=== PATIENT | male | born 1945 | race Caucasian/White ===

== ENCOUNTER 2017-10-22 07:04 | Inpatient (IN) | payer MEDICARE, BC ==
[~2017-10-22] VITALS: Ht 182.9 cm; Wt 90.5 kg
[2017-10-22] MEDS ORDERED: BACITRACIN ZINC OINT 500U/GM, 0.9 GM ONE (07:28)
[2017-10-22] MEDS ORDERED: SODIUM CHLORIDE FLUSH 10ML SYR IVF ONE (08:00)
[2017-10-22 08:03] LABS: HEMATOCRIT 50.9 % (39.2-51.8); WHITE BLOOD COUNT 8.2 x10^3/uL (3.4-10)
[2017-10-22] MEDS ORDERED: SIMV40TA3 PO (08:05)
[2017-10-22] MEDS ORDERED: TAMS0.4C2 PO (08:05)
[2017-10-22] MEDS ORDERED: ENAL10TA PO (08:05)
[2017-10-22] MEDS ORDERED: CARV12.52 PO (08:05)
[2017-10-22] MEDS ORDERED: ASPI-515 PO (08:05)
[2017-10-22] MEDS ORDERED: MULT-717 PO (08:06)
[2017-10-22 08:13] LABS: BLOOD UREA NITROGEN 26 mg/dL (7-18)
[2017-10-22 08:17] LABS: IS PT STATUS REG ER OR PRE ER? YES
[2017-10-22] MEDS ORDERED: POLYETHYLENE GLYCOL 17 GM PACKET PO PRN (10:00)
[2017-10-22] MEDS ORDERED: ENOXAPARIN 40 MG/0.4 ML SQ SCH (10:00)
[2017-10-22] MEDS ORDERED: morphine SULFATE 10 MG/ML, 1ML IVPush PRN (10:00)
[2017-10-22] MEDS ORDERED: TRAZODONE 50MG TABLET PO PRN (10:00)
[2017-10-22] MEDS ORDERED: ONDANSETRON 2MG/ML, 2ML IVPush PRN (10:00)
[2017-10-22] MEDS ORDERED: HYDROcodone/APAP 5/325 TABLET PO PRN (10:00)
[2017-10-22] MEDS ORDERED: DOCUSATE 100 MG CAPSULE PO PRN (10:00)
[2017-10-22] MEDS ORDERED: SODIUM CHLORIDE FLUSH 10ML SYR IVF PRN (10:00)
[2017-10-22 10:59] VITALS: BP 115/71
[2017-10-22] MEDS: ACETAMINOPHEN 325 MG TABLET PO PRN ×2 (12:33→20:11)
[2017-10-22 13:15] LABS: IS PT STATUS REG ER OR PRE ER? NO
[2017-10-22 19:07] VITALS: BP 102/62
[2017-10-22 19:57] VITALS: BP 119/73
[2017-10-22] MEDS: SODIUM CHLORIDE FLUSH 10ML SYR IVF SCH (20:10)
[2017-10-22] MEDS: CARVEDILOL 12.5 MG TABLET PO SCH (20:11)
[2017-10-22] MEDS: ENALAPRIL 10 MG TABLET PO SCH (20:15)
[2017-10-22 20:17] LABS: IS PT STATUS REG ER OR PRE ER? NO
[2017-10-22] MEDS ORDERED: SIMVASTATIN 40 MG TABLET PO SCH (21:00)
[2017-10-23 00:59] VITALS: BP 118/75
[2017-10-23 07:38] VITALS: BP 116/58
[2017-10-23] MEDS: SENNA/DOCUSATE TABLET PO SCH ×2 (08:07→08:22)
[2017-10-23] MEDS: CARVEDILOL 12.5 MG TABLET PO SCH (08:22)
[2017-10-23] MEDS: SODIUM CHLORIDE FLUSH 10ML SYR IVF SCH (08:22)
[2017-10-23] MEDS ORDERED: ASPIRIN 81 MG TABLET EC PO SCH (09:00)
[2017-10-23] MEDS ORDERED: TAMSULOSIN 0.4 MG CAP.ER.24H PO SCH (09:00)
[2017-10-23] MEDS ORDERED: ZOLP-413 PO (09:47)
[2017-10-23] MEDS: ENALAPRIL 10 MG TABLET PO SCH (10:54)
[2017-10-23] MEDS ORDERED: OMNIPAQUE 350 MG/ML, 100ML BOTTLE ONE ×2 (11:00→12:37)
== END 2017-10-23 14:27 | disposition home or self-care (01) | DRG 313 ==
LOC: ED 08:48 → SUATTDRO 09:20 → EDIP 09:37 → 5SO 10:48 → DCLOUNGE 10-23 14:13
PROVIDERS: ADMIT Family Medicine; ATTEND Family Medicine
DX: R07.9 Chest pain, unspecified (principal); I20.0 Unstable angina; I71.2 Thoracic aortic aneurysm, without rupture; I25.2 Old myocardial infarction; E78.5 Hyperlipidemia, unspecified; I10 Essential (primary) hypertension; G47.00 Insomnia, unspecified; I49.3 Ventricular premature depolarization; I71.4 Abdominal aortic aneurysm, without rupture; N28.1 Cyst of kidney, acquired; I49.9 Cardiac arrhythmia, unspecified; Z87.891 Personal history of nicotine dependence
CPT/HCPCS: 36415; 71010; 71275; 74175; 80048; 82040; 83735; 84484; 85025; 85610; 85730; 93005; 99285; J1650; Q9967

== ENCOUNTER 2018-01-19 09:58 | Inpatient (IN) | payer MEDICARE, BC ==
[~2018-01-19] VITALS: Ht 182.9 cm; Wt 90.0 kg
[~2018-01-19 09:58] MED LIST: ASPI-515 PO; CARV12.52 PO; ENAL10TA PO; MULT-717 PO; SIMV40TA3 PO; TAMS0.4C2 PO; ZOLP-413 PO
[2018-01-19] MEDS ORDERED: ACETAMINOPHEN 325 MG TABLET PO ONE (10:30)
[2018-01-19] MEDS ORDERED: SODIUM CHLORIDE FLUSH 10ML SYR IVF ONE (10:30)
[2018-01-19 10:39] LABS: BASOPHILS # (AUTO) 0.02 x10^3/uL (0-0.1); BASOPHILS % (AUTO) 0 % (0-1); MD NO; NEUTROPHILS # (AUTO) 4.77 x10^3/uL (1.8-6.8); RED BLOOD COUNT 5.68 x10^6/uL (4.38-5.82)
[2018-01-19 10:46] LABS: EOSINOPHILS # (AUTO) 0.03 x10^3/uL (0-0.4); EOSINOPHILS % (AUTO) 0 % (1-7); INTERNATIONAL NORMALIZED RATIO 1.02 (0.93-1.1); LYMPHOCYTES # (AUTO) 1.33 x10^3/uL (1-3.4); LYMPHOCYTES % (AUTO) 18 % (22-44); MEAN CORPUSCULAR HEMOGLOBIN 29.2 pg (27.5-34.5); MEAN CORPUSCULAR HGB CONC 33.9 g/dL (33.2-36.2); MEAN CORPUSCULAR VOLUME 86.2 fL (81-97); MEAN PLATELET VOLUME 7.7 fL (7.4-10.4); MONOCYTES # (AUTO) 1.33 x10^3/uL (0.2-0.8); MONOCYTES % (AUTO) 18 % (2-9); NEUTROPHILS % (AUTO) 64 % (42-75); PLATELET COUNT 146 x10^3/uL (130-400); PROTHROMBIN TIME 10.6 Seconds (9.6-11.5); RED CELL DISTRIBUTION WIDTH 14.7 % (9.4-14.8)
[2018-01-19] MEDS ORDERED: ACETAMINOPHEN 325 MG TABLET ONE (10:52)
[2018-01-19] MEDS ORDERED: SODIUM CHLORIDE 0.9% 1,000 ML IV ONE (10:53)
[2018-01-19 10:55] LABS: ALANINE AMINOTRANSFERASE 27 U/L (12-78); ALBUMIN 3.7 g/dL (3.4-5.0); ANION GAP 8 mmol/L (5-15); CALCIUM 8.4 mg/dL (8.5-10.1); CHLORIDE 109 mmol/L (98-107); CREATININE 1.17 mg/dL (0.7-1.3)
[2018-01-19] MEDS ORDERED: CEFTRIAXONE PMX 1GM/50ML 50 ML ONE (10:55)
[2018-01-19 10:59] LABS: ALKALINE PHOSPHATASE 61 U/L (45-117); BILIRUBIN,TOTAL 0.3 mg/dL (0.2-1.0); TOTAL PROTEIN 7.2 g/dL (6.4-8.2); TROPONIN I < 0.015 ng/mL (0.000-0.045)
[2018-01-19] MEDS ORDERED: AZITHROMYCIN 500 MG in SODIUM CHLORIDE 0.9% 250 ML IVPB ONE (11:00)
[2018-01-19] MEDS ORDERED: CEFTRIAXONE PMX 1GM/50ML 50 ML IVPB ONE (11:00)
[2018-01-19] MEDS ORDERED: SODIUM CHLORIDE 0.9% 1,000ML IVBOLUS ONE (11:00)
[2018-01-19 12:00] LABS: MICROSCOPIC NOT IND
[2018-01-19] MEDS ORDERED: SODIUM CHLORIDE FLUSH 10ML SYR IVF PRN (12:00)
[2018-01-19 12:08] LABS: CULTURE INDICATED? NO
[2018-01-19] MEDS ORDERED: morphine SULFATE 10 MG/ML, 1ML IVPush PRN (12:30)
[2018-01-19] MEDS ORDERED: DOCUSATE 100 MG CAPSULE PO PRN (12:30)
[2018-01-19] MEDS ORDERED: POLYETHYLENE GLYCOL 17 GM PACKET PO PRN (12:30)
[2018-01-19] MEDS ORDERED: MULTIVIT.W/IRON, MINERALS ORAL SOL PO SCH (12:30)
[2018-01-19] MEDS ORDERED: GUAIFENESIN/DM 200-20MG, 10ML UDC PO PRN (12:30)
[2018-01-19] MEDS ORDERED: ONDANSETRON 2MG/ML, 2ML IVPush PRN (12:30)
[2018-01-19] MEDS ORDERED: SODIUM CHLORIDE 0.9%, 500ML IVBOLUS ONE (12:30)
[2018-01-19] MEDS ORDERED: OMNIPAQUE 350 MG/ML, 100ML BOTTLE ONE (13:34)
[2018-01-19 13:40] VITALS: BP 105/70
[2018-01-19 13:45] VITALS: BP 105/70
[2018-01-19 13:59] VITALS: BP 105/70
[2018-01-19] MEDS: ASPIRIN 81 MG TABLET EC PO SCH (14:27)
[2018-01-19] MEDS: SENNA/DOCUSATE TABLET PO SCH (14:27)
[2018-01-19] MEDS: ENOXAPARIN 40 MG/0.4 ML SQ SCH (14:27)
[2018-01-19] MEDS: TAMSULOSIN 0.4 MG CAP.ER.24H PO SCH (14:27)
[2018-01-19] MEDS: NS + 20MEQ KCL 1,000 ML IV SCH ×2 (14:28→22:35)
[2018-01-19] MEDS ORDERED: ZOLPIDEM 5MG TABLET PO SCH (21:00)
[2018-01-19] MEDS ORDERED: SIMVASTATIN 40 MG TABLET PO SCH (21:00)
[2018-01-19 21:58] VITALS: BP 113/67
[2018-01-19] MEDS: HYDROcodone/APAP 5/325 TABLET PO PRN (22:47)
[2018-01-20 03:36] VITALS: BP 90/51
[2018-01-20 05:09] LABS: ANION GAP 5 mmol/L (5-15); CALCIUM 7.6 mg/dL (8.5-10.1); CHLORIDE 111 mmol/L (98-107)
[2018-01-20 05:10] LABS: CREATININE 1.06 mg/dL (0.7-1.3)
[2018-01-20 05:51] VITALS: BP 127/56
[2018-01-20 07:43] VITALS: BP 121/80
[2018-01-20] MEDS: SENNA/DOCUSATE TABLET PO SCH (08:03)
[2018-01-20] MEDS: ASPIRIN 81 MG TABLET EC PO SCH (08:03)
[2018-01-20] MEDS: TAMSULOSIN 0.4 MG CAP.ER.24H PO SCH (08:03)
[2018-01-20] MEDS: HYDROcodone/APAP 5/325 TABLET PO PRN (08:11)
[2018-01-20] MEDS ORDERED: MULTIVITAMINS/MINERALS TABLET PO SCH (09:00)
[2018-01-20] MEDS ORDERED: AZITHROMYCIN 500 MG in SODIUM CHLORIDE 0.9% 250 ML IV SCH (11:00)
[2018-01-20] MEDS ORDERED: CEFD300C37 PO (12:19)
[2018-01-20] MEDS ORDERED: AZIT500T5 PO (12:19)
[2018-01-20] MEDS: ENOXAPARIN 40 MG/0.4 ML SQ SCH (12:30)
[2018-01-20] MEDS ORDERED: CEFTRIAXONE 1,000 MG in DEXTROSE 5% 50 ML IV SCH (13:00)
== END 2018-01-20 14:41 | disposition home or self-care (01) | DRG 193 ==
LOC: ED 11:25 → EDIP 11:50 → 4EST 13:29 → 4WST 15:51
PROVIDERS: ADMIT Family Medicine; ATTEND Family Medicine
DX: J15.9 Unspecified bacterial pneumonia (principal); J96.01 Acute respiratory failure with hypoxia; E78.5 Hyperlipidemia, unspecified; I10 Essential (primary) hypertension; I72.2 Aneurysm of renal artery; Z83.3 Family history of diabetes mellitus; Z87.01 Personal history of pneumonia (recurrent); Z87.891 Personal history of nicotine dependence
CPT/HCPCS: 36415; 71046; 71275; 74174; 80048; 80053; 81003; 83605; 83735; 84145; 84484; 85025; 85610; 85730; 87040; 93005; 96365; 96366; J0456; J0696; J1650; J3480; Q9967; J7030; J7040; J7050

== ENCOUNTER 2018-04-28 08:06 | Inpatient (IN) | payer MEDICARE, BC ==
[~2018-04-28] VITALS: Ht 180.3 cm; Wt 80.9 kg
[~2018-04-28 08:06] MED LIST changes: +ALBU90AE INH; +AZIT500T5 PO; +CEFD300C37 PO; +FLUT1DIS IH; +IPRA3AMP NPPB; +METH4TAB2 PO
[2018-04-28 08:35] LABS: BASOPHILS # (AUTO) 0.04 x10^3/uL (0-0.1); BASOPHILS % (AUTO) 1 % (0-1); EOSINOPHILS % (AUTO) 2 % (1-7); LYMPHOCYTES # (AUTO) 2.28 x10^3/uL (1-3.4); LYMPHOCYTES % (AUTO) 27 % (22-44); MD NO; MEAN CORPUSCULAR HEMOGLOBIN 29.1 pg (27.5-34.5); MEAN CORPUSCULAR HGB CONC 33.7 g/dL (33.2-36.2); MEAN CORPUSCULAR VOLUME 86.1 fL (81-97); MEAN PLATELET VOLUME 7.1 fL (7.4-10.4); MONOCYTES # (AUTO) 0.76 x10^3/uL (0.2-0.8); MONOCYTES % (AUTO) 9 % (2-9); NEUTROPHILS # (AUTO) 5.12 x10^3/uL (1.8-6.8); NEUTROPHILS % (AUTO) 61 % (42-75); PLATELET COUNT 233 x10^3/uL (130-400); RED BLOOD COUNT 5.75 x10^6/uL (4.38-5.82); RED CELL DISTRIBUTION WIDTH 15.4 % (9.4-14.8)
[2018-04-28 08:48] LABS: ALANINE AMINOTRANSFERASE 37 U/L (12-78); ALBUMIN 4.1 g/dL (3.4-5.0); ANION GAP 8 mmol/L (5-15); CALCIUM 9.3 mg/dL (8.5-10.1); CHLORIDE 110 mmol/L (98-107)
[2018-04-28 08:53] LABS: ALKALINE PHOSPHATASE 65 U/L (45-117); BILIRUBIN,TOTAL 0.5 mg/dL (0.2-1.0); TOTAL PROTEIN 7.6 g/dL (6.4-8.2); TROPONIN I < 0.015 ng/mL (0.000-0.045)
[2018-04-28] MEDS ORDERED: ONDANSETRON 2MG/ML, 2ML ONE (09:13)
[2018-04-28] MEDS ORDERED: ONDANSETRON 2MG/ML, 2ML IVPush PRN ×2 (09:30)
[2018-04-28] MEDS ORDERED: ASPIRIN 325 MG TABLET EC ONE (10:29)
[2018-04-28] MEDS ORDERED: ASPIRIN 325 MG TABLET EC PO ONE (10:30)
[2018-04-28 11:04] VITALS: BP 130/75
[2018-04-28 14:15] VITALS: BP 97/64
[2018-04-28 16:45] VITALS: BP 114/70
[2018-04-28 16:47] VITALS: BP 103/64
[2018-04-28 16:50] VITALS: BP 114/77
[2018-04-28 18:53] LABS: MICROSCOPIC NOT IND
[2018-04-28 20:00] VITALS: BP 111/68
[2018-04-28] MEDS ORDERED: SIMVASTATIN 40 MG TABLET PO SCH (21:00)
[2018-04-28 22:18] LABS: MICROSCOPIC NOT IND
[2018-04-28 22:24] LABS: CULTURE INDICATED? NO
[2018-04-29 02:00] VITALS: BP 116/69
[2018-04-29 05:16] LABS: CHOL/HDL RATIO 3.2; FOLATE LEVEL 18.9 ng/mL (3.1-17.5); LDL/HDL RATIO 1.3 (0.5-3.0)
[2018-04-29 07:59] VITALS: BP 129/85
[2018-04-29] MEDS ORDERED: TAMSULOSIN 0.4 MG CAP.ER.24H PO SCH (09:00)
[2018-04-29] MEDS ORDERED: ASPIRIN 81 MG TABLET EC PO SCH (09:00)
[2018-04-29] MEDS ORDERED: MULTIVITAMINS/MINERALS TABLET PO SCH (09:00)
[2018-04-29 12:22] VITALS: BP 108/71
[2018-04-29] MEDS ORDERED: ERGOCALCIFEROL 50,000 UNIT CAPSULE PO SCH (12:30)
[2018-04-29] MEDS ORDERED: ERGO500017 PO (13:36)
== END 2018-04-29 13:55 | disposition home or self-care (01) | DRG 70 ==
LOC: ED 10:13 → EDIP 10:22 → 4WST 10:59 → DCLOUNGE 04-29 13:32
PROVIDERS: ADMIT Internal Medicine; ATTEND Internal Medicine
DX: G45.4 Transient global amnesia (principal); G93.40 Encephalopathy, unspecified; E87.2 Acidosis; E55.9 Vitamin D deficiency, unspecified; E78.00 Pure hypercholesterolemia, unspecified; E78.5 Hyperlipidemia, unspecified; I10 Essential (primary) hypertension; I25.10 Atherosclerotic heart disease of native coronary artery without angina pectoris; J44.9 Chronic obstructive pulmonary disease, unspecified; N40.0 Benign prostatic hyperplasia without lower urinary tract symptoms; Z79.82 Long term (current) use of aspirin; I25.2 Old myocardial infarction; Z80.0 Family history of malignant neoplasm of digestive organs; Z87.891 Personal history of nicotine dependence; Z90.89 Acquired absence of other organs
CPT/HCPCS: 36415; 70450; 70551; 71045; 80053; 80061; 81003; 82306; 82607; 82746; 82962; 83880; 84484; 85025; 93005; 93880; 96374; J2405

== ENCOUNTER → 2018-10-08 | Outpatient (CLI) | payer MEDICARE, BC ==
[~2018-10-08] MED LIST changes: +ERGO500017 PO; -IPRA3AMP NPPB; +IPRA3AMP30 NPPB
== END | disposition home or self-care (01) ==
LOC: CFH 06:39
PROVIDERS: ATTEND Internal Medicine
DX: M75.121 Complete rotator cuff tear or rupture of right shoulder, not specified as traumatic (principal); M25.411 Effusion, right shoulder

== ENCOUNTER → 2018-12-09 | Outpatient (CLI) | payer MEDICARE, BC | END | disposition home or self-care (01) | LOC: CFH 08:01 | DX: I71.4 Abdominal aortic aneurysm, without rupture (principal); C80.1 Malignant (primary) neoplasm, unspecified; K57.30 Diverticulosis of large intestine without perforation or abscess without bleeding; M47.896 Other spondylosis, lumbar region; N28.1 Cyst of kidney, acquired | CPT/HCPCS: 74176 ==

== ENCOUNTER 2018-12-24 08:52 | Inpatient (IN) | payer MEDICARE, BC ==
[2018-12-22 09:29] LABS: BASOPHILS # (AUTO) 0.04 x10^3/uL (0-0.1); BASOPHILS % (AUTO) 0 % (0-1); EOSINOPHILS # (AUTO) 0.25 x10^3/uL (0-0.4); EOSINOPHILS % (AUTO) 3 % (1-7); LYMPHOCYTES # (AUTO) 1.66 x10^3/uL (1-3.4); LYMPHOCYTES % (AUTO) 17 % (22-44); MD NO; MEAN CORPUSCULAR HGB CONC 32.2 g/dL (33.2-36.2); MEAN CORPUSCULAR VOLUME 86.9 fL (81-97); MEAN PLATELET VOLUME 7.2 fL (7.4-10.4); MONOCYTES # (AUTO) 0.91 x10^3/uL (0.2-0.8); MONOCYTES % (AUTO) 9 % (2-9); NEUTROPHILS % (AUTO) 71 % (42-75); PLATELET COUNT 197 x10^3/uL (130-400); RED BLOOD COUNT 5.57 x10^6/uL (4.38-5.82); RED CELL DISTRIBUTION WIDTH 14.8 % (9.4-14.8)
[2018-12-22 09:42] LABS: ALANINE AMINOTRANSFERASE 24 U/L (12-78); ALBUMIN 3.5 g/dL (3.4-5.0); ANION GAP 4 mmol/L (5-15); CHLORIDE 109 mmol/L (98-107); CREATININE 0.91 mg/dL (0.7-1.3)
[2018-12-22 09:47] LABS: ALKALINE PHOSPHATASE 78 U/L (45-117); BILIRUBIN,TOTAL 0.5 mg/dL (0.2-1.0); TOTAL PROTEIN 6.9 g/dL (6.4-8.2)
[~2018-12-24] VITALS: Ht 182.9 cm; Wt 88.2 kg
[2018-12-24] MEDS ORDERED: LACTATED RINGERS 1,000 ML IV SCH (09:45)
[2018-12-24] MEDS ORDERED: ACETAMINOPHEN 500 MG TABLET PO ONE (10:00)
[2018-12-24] MEDS ORDERED: GABAPENTIN 300 MG CAPSULE PO ONE (10:00)
[2018-12-24] MEDS ORDERED: INDOCYANINE GREEN 25 MG VIAL ONE (11:41)
[2018-12-24] MEDS ORDERED: FENTANYL PF 250 MCG/5ML ONE (11:44)
[2018-12-24] MEDS ORDERED: MIDAZOLAM 1 MG/ML, 2ML ONE (11:44)
[2018-12-24] MEDS ORDERED: ROPIvacaine/PF 0.5%, 30 ML ONE ×2 (11:47)
[2018-12-24] MEDS ORDERED: CEFOTETAN 2 GM ONE (11:47)
[2018-12-24] MEDS ORDERED: SODIUM CHLORIDE 0.9% PF 10ML ONE (11:47)
[2018-12-24] MEDS ORDERED: PROMETHAZINE 12.5 MG SUPP PR PRN (12:00)
[2018-12-24] MEDS ORDERED: hydrALAzine 20 MG/ML, 1ML IV PRN (12:00)
[2018-12-24] MEDS ORDERED: LABETALOL 5MG/ML, 20ML IV PRN (12:00)
[2018-12-24] MEDS ORDERED: ONDANSETRON 2MG/ML, 2ML IV PRN ×2 (12:00→18:00)
[2018-12-24] MEDS ORDERED: PROMETHAZINE 25 MG/ML, 1ML IV PRN (12:00)
[2018-12-24] MEDS ORDERED: ONDANSETRON ODT 8 MG PO PRN (12:00)
[2018-12-24] MEDS ORDERED: MEPERIDINE/PF 25MG/0.5ML IVPush PRN (12:00)
[2018-12-24] MEDS ORDERED: MORPHINE SULFATE 4 MG/ML, 1ML IVPush PRN (12:00)
[2018-12-24] MEDS ORDERED: PROMETHAZINE 25 MG/ML, 1ML IM PRN ×2 (12:00)
[2018-12-24] MEDS ORDERED: HYDROmorphone 2 MG/ML, 1ML IVPush PRN (12:00)
[2018-12-24] MEDS ORDERED: PROMETHAZINE 25 MG SUPP PR PRN (12:00)
[2018-12-24] MEDS ORDERED: FENTANYL PF 100 MCG/2ML IV PRN (12:00)
[2018-12-24] MEDS ORDERED: OXYcodone 5 MG/5 ML ORAL.SOL UDC PO PRN (12:00)
[2018-12-24] MEDS ORDERED: PHENYLEPHRINE 10 MG/ML ONE (12:02)
[2018-12-24] MEDS ORDERED: VASOPRESSIN 20 UNIT/ML, 1ML ONE (12:02)
[2018-12-24] MEDS ORDERED: PROPOFOL 10 MG/ML, 20ML ONE (12:54)
[2018-12-24] MEDS ORDERED: NEOSTIGMINE 1 MG/ML, 10ML ONE (12:54)
[2018-12-24] MEDS ORDERED: GLYCOPYRROLATE 0.2MG/1ML, 5ML ONE (12:54)
[2018-12-24] MEDS ORDERED: CEFAZOLIN 1,000 MG ONE (12:54)
[2018-12-24] MEDS ORDERED: ROCURONIUM 10MG/ML,5ML ONE ×2 (12:54→13:55)
[2018-12-24] MEDS ORDERED: OXYcodone 5 MG/5 ML ORAL.SOL UDC ONE (14:54)
[2018-12-24] MEDS ORDERED: MEPERIDINE/PF 25MG/ML,1ML ONE (15:02)
[2018-12-24 17:18] VITALS: BP 174/67
[2018-12-24] MEDS ORDERED: DIPHENHYDRAMINE 25 MG CAPSULE PO PRN (17:30)
[2018-12-24] MEDS: ACETAMINOPHEN 500 MG TABLET PO SCH ×2 (17:53→23:03)
[2018-12-24] MEDS: OXYcodone IR 5MG TABLET PO PRN (17:53)
[2018-12-24] MEDS: CARVEDILOL 12.5 MG TABLET PO SCH (17:54)
[2018-12-24 17:59] VITALS: BP 149/85
[2018-12-24] MEDS ORDERED: DEXAMETHASONE 4 MG/ML, 1ML IVPush PRN (18:00)
[2018-12-24] MEDS ORDERED: DIPHENHYDRAMINE 50 MG/ML, 1ML IVPush PRN (18:00)
[2018-12-24] MEDS ORDERED: SCOPOLAMINE PATCH, 1.5MG PATCH.TD72 TD PRN (18:00)
[2018-12-24] MEDS ORDERED: LORazepam 2 MG/ML, 1ML IVPush PRN (18:00)
[2018-12-24] MEDS ORDERED: CALCIUM CARBONATE 500 MG TAB.CHEW PO PRN (18:00)
[2018-12-24] MEDS ORDERED: HYDROmorphone 1 MG/ML, 1ML IVPush PRN (18:00)
[2018-12-24 19:25] VITALS: BP 135/82
[2018-12-24] MEDS: D5%-0.45NACL+KCL 20MEQ 1,000 ML IV SCH (19:49)
[2018-12-24] MEDS: IBUPROFEN 800 MG TABLET PO SCH (19:49)
[2018-12-24] MEDS: SIMVASTATIN 40 MG TABLET PO SCH (19:50)
[2018-12-24] MEDS: LORazepam 1MG TABLET PO PRN (23:03)
[2018-12-25 00:58] VITALS: BP 115/71
[2018-12-25] MEDS: OXYcodone IR 5MG TABLET PO PRN (01:18)
[2018-12-25 03:46] LABS: BASOPHILS # (AUTO) 0.03 x10^3/uL (0-0.1); BASOPHILS % (AUTO) 0 % (0-1); EOSINOPHILS # (AUTO) 0.07 x10^3/uL (0-0.4); EOSINOPHILS % (AUTO) 1 % (1-7); LYMPHOCYTES # (AUTO) 1.65 x10^3/uL (1-3.4); LYMPHOCYTES % (AUTO) 19 % (22-44); MD NO; MEAN CORPUSCULAR HEMOGLOBIN 28.5 pg (27.5-34.5); MEAN CORPUSCULAR VOLUME 86.4 fL (81-97); MEAN PLATELET VOLUME 7.5 fL (7.4-10.4); MONOCYTES # (AUTO) 1.08 x10^3/uL (0.2-0.8); MONOCYTES % (AUTO) 12 % (2-9); NEUTROPHILS # (AUTO) 5.88 x10^3/uL (1.8-6.8); NEUTROPHILS % (AUTO) 67 % (42-75); PLATELET COUNT 189 x10^3/uL (130-400); RED BLOOD COUNT 5.15 x10^6/uL (4.38-5.82); RED CELL DISTRIBUTION WIDTH 14.9 % (9.4-14.8)
[2018-12-25 03:53] LABS: ANION GAP 5 mmol/L (5-15); CALCIUM 8.4 mg/dL (8.5-10.1); CHLORIDE 109 mmol/L (98-107); CREATININE 1.18 mg/dL (0.7-1.3)
[2018-12-25] MEDS: CARVEDILOL 12.5 MG TABLET PO SCH ×2 (05:29→17:49)
[2018-12-25] MEDS: ACETAMINOPHEN 500 MG TABLET PO SCH ×3 (05:29→17:49)
[2018-12-25] MEDS: D5%-0.45NACL+KCL 20MEQ 1,000 ML IV SCH (06:41)
[2018-12-25 08:15] VITALS: BP 118/74
[2018-12-25] MEDS ORDERED: IBUPROFEN 200 MG TABLET ONE ×4 (08:19→21:47)
[2018-12-25] MEDS: TAMSULOSIN 0.4 MG CAP.ER.24H PO SCH (08:34)
[2018-12-25] MEDS: IBUPROFEN 800 MG TABLET PO SCH ×3 (08:34→21:00)
[2018-12-25] MEDS: ENOXAPARIN 40 MG/0.4 ML SQ SCH (12:01)
[2018-12-25 13:16] VITALS: BP 122/76
[2018-12-25 19:54] VITALS: BP 133/77
[2018-12-25] MEDS: LORazepam 1MG TABLET PO PRN (22:02)
[2018-12-25] MEDS: SIMVASTATIN 40 MG TABLET PO SCH (22:02)
[2018-12-26 00:40] VITALS: BP 129/72
[2018-12-26] MEDS: LORazepam 1MG TABLET PO PRN (00:56)
[2018-12-26 03:12] LABS: BASOPHILS # (AUTO) 0.03 x10^3/uL (0-0.1); BASOPHILS % (AUTO) 0 % (0-1); EOSINOPHILS # (AUTO) 0.36 x10^3/uL (0-0.4); EOSINOPHILS % (AUTO) 4 % (1-7); LYMPHOCYTES % (AUTO) 15 % (22-44); MD NO; MEAN CORPUSCULAR HEMOGLOBIN 27.3 pg (27.5-34.5); MEAN CORPUSCULAR HGB CONC 31.8 g/dL (33.2-36.2); MEAN CORPUSCULAR VOLUME 85.9 fL (81-97); MEAN PLATELET VOLUME 7.2 fL (7.4-10.4); MONOCYTES # (AUTO) 1.01 x10^3/uL (0.2-0.8); MONOCYTES % (AUTO) 10 % (2-9); NEUTROPHILS # (AUTO) 7.07 x10^3/uL (1.8-6.8); NEUTROPHILS % (AUTO) 71 % (42-75); PLATELET COUNT 207 x10^3/uL (130-400); RED BLOOD COUNT 5.48 x10^6/uL (4.38-5.82); RED CELL DISTRIBUTION WIDTH 14.2 % (9.4-14.8)
[2018-12-26 03:22] LABS: ANION GAP 8 mmol/L (5-15); CALCIUM 8.6 mg/dL (8.5-10.1); CHLORIDE 113 mmol/L (98-107); CREATININE 1.21 mg/dL (0.7-1.3)
[2018-12-26 05:07] VITALS: BP 154/76
[2018-12-26] MEDS: CARVEDILOL 12.5 MG TABLET PO SCH ×2 (05:09→18:15)
[2018-12-26] MEDS: ACETAMINOPHEN 500 MG TABLET PO SCH ×4 (05:09→18:15)
[2018-12-26 07:10] VITALS: BP 135/89
[2018-12-26] MEDS: IBUPROFEN 800 MG TABLET PO SCH ×3 (08:28→21:00)
[2018-12-26] MEDS: TAMSULOSIN 0.4 MG CAP.ER.24H PO SCH (08:28)
[2018-12-26 15:00] VITALS: BP 129/80
[2018-12-26] MEDS: ENOXAPARIN 40 MG/0.4 ML SQ SCH (15:17)
[2018-12-26 20:01] VITALS: BP 111/69
[2018-12-26] MEDS ORDERED: IBUPROFEN 200 MG TABLET ONE (21:33)
[2018-12-26] MEDS: SIMVASTATIN 40 MG TABLET PO SCH (21:36)
[2018-12-27 01:35] VITALS: BP 140/74
[2018-12-27 03:16] LABS: ANION GAP 6 mmol/L (5-15); CALCIUM 8.3 mg/dL (8.5-10.1); CHLORIDE 113 mmol/L (98-107); CREATININE 1.01 mg/dL (0.7-1.3)
[2018-12-27 03:30] LABS: BASOPHILS # (AUTO) 0.03 x10^3/uL (0-0.1); BASOPHILS % (AUTO) 0 % (0-1); EOSINOPHILS # (AUTO) 0.53 x10^3/uL (0-0.4); EOSINOPHILS % (AUTO) 7 % (1-7); LYMPHOCYTES # (AUTO) 1.65 x10^3/uL (1-3.4); LYMPHOCYTES % (AUTO) 21 % (22-44); MD NO; MEAN CORPUSCULAR HEMOGLOBIN 28.5 pg (27.5-34.5); MEAN CORPUSCULAR HGB CONC 32.8 g/dL (33.2-36.2); MEAN PLATELET VOLUME 7.4 fL (7.4-10.4); MONOCYTES # (AUTO) 0.82 x10^3/uL (0.2-0.8); MONOCYTES % (AUTO) 11 % (2-9); NEUTROPHILS # (AUTO) 4.81 x10^3/uL (1.8-6.8); NEUTROPHILS % (AUTO) 61 % (42-75); PLATELET COUNT 195 x10^3/uL (130-400); RED BLOOD COUNT 4.85 x10^6/uL (4.38-5.82); RED CELL DISTRIBUTION WIDTH 14.7 % (9.4-14.8)
[2018-12-27 06:12] VITALS: BP 142/94
[2018-12-27] MEDS: ACETAMINOPHEN 500 MG TABLET PO SCH ×2 (06:13)
[2018-12-27] MEDS: CARVEDILOL 12.5 MG TABLET PO SCH (06:13)
[2018-12-27 07:31] VITALS: BP 117/71
[2018-12-27] MEDS: TAMSULOSIN 0.4 MG CAP.ER.24H PO SCH (08:05)
[2018-12-27] MEDS ORDERED: IBUP-1223 PO (08:56)
[2018-12-27] MEDS ORDERED: ASPI-515 PO (09:20)
[2018-12-27] MEDS ORDERED: ENAL10TA PO (09:21)
[2018-12-27] MEDS ORDERED: FOLI1TAB5 PO (09:21)
== END 2018-12-27 09:40 | disposition home or self-care (01) | DRG 330 ==
LOC: ORIP 08:52 → 4NOR 16:23 → 5SO 17:17 → DCLOUNGE 12-27 09:17
PROVIDERS: ADMIT Surgery; ATTEND Surgery
PROC: 8E0W4CZ Robotic Assisted Procedure of Trunk Region, Percutaneous Endoscopic Approach (ICD-10-PCS; 2018-12-24)
PROC: 0DTN4ZZ Resection of Sigmoid Colon, Percutaneous Endoscopic Approach (ICD-10-PCS; 2018-12-24)
PROC: 3E0T3BZ Introduction of Anesthetic Agent into Peripheral Nerves and Plexi, Percutaneous Approach (ICD-10-PCS; 2018-12-24)
PROC: 0DBP4ZZ Excision of Rectum, Percutaneous Endoscopic Approach (ICD-10-PCS; principal; 2018-12-24 12:00)
DX: K63.5 Polyp of colon (principal); K57.20 Diverticulitis of large intestine with perforation and abscess without bleeding; E78.00 Pure hypercholesterolemia, unspecified; I10 Essential (primary) hypertension; N40.1 Benign prostatic hyperplasia with lower urinary tract symptoms; R33.8 Other retention of urine; E78.5 Hyperlipidemia, unspecified; Z83.3 Family history of diabetes mellitus; Z80.8 Family history of malignant neoplasm of other organs or systems
CPT/HCPCS: 36415; 80048; 80053; 82378; 85025; 86850; 86900; 88309; 93005; G0378; J0690; J1650; J2175; J2250; J2704; J2710; J2795; J3010; J3490; J2370; J3480; J7120; Q0163

== ENCOUNTER → 2019-01-12 | Outpatient (CLI) | payer MEDICARE, BC ==
[~2019-01-12] MED LIST changes: +FOLI1TAB5 PO; +IBUP-1223 PO; +OMNIPAQUE 350 MG/ML, 100ML BOTTLE ONE
[2019-01-12 12:40] LABS: BASOPHILS # (AUTO) 0.03 x10^3/uL (0-0.1); BASOPHILS % (AUTO) 0 % (0-1); EOSINOPHILS % (AUTO) 4 % (1-7); LYMPHOCYTES # (AUTO) 1.99 x10^3/uL (1-3.4); LYMPHOCYTES % (AUTO) 18 % (22-44); MD NO; MEAN CORPUSCULAR HEMOGLOBIN 28.9 pg (27.5-34.5); MEAN CORPUSCULAR HGB CONC 33.5 g/dL (33.2-36.2); MEAN CORPUSCULAR VOLUME 86.3 fL (81-97); MEAN PLATELET VOLUME 7.7 fL (7.4-10.4); MONOCYTES # (AUTO) 0.75 x10^3/uL (0.2-0.8); MONOCYTES % (AUTO) 7 % (2-9); NEUTROPHILS # (AUTO) 7.86 x10^3/uL (1.8-6.8); NEUTROPHILS % (AUTO) 71 % (42-75); PLATELET COUNT 304 x10^3/uL (130-400); RED BLOOD COUNT 5.33 x10^6/uL (4.38-5.82); RED CELL DISTRIBUTION WIDTH 15.5 % (9.4-14.8)
[2019-01-12 13:04] LABS: ANION GAP 4 mmol/L (5-15); CALCIUM 9.1 mg/dL (8.5-10.1); CHLORIDE 110 mmol/L (98-107)
[2019-01-13 18:14] LABS: CLOSTRIDIUM DIFFICILE ANTIGEN POSITIVE
[2019-01-13 18:18] LABS: CLOSTRIDIUM DIFFICILE TOXIN POSITIVE (Negative)
== END | disposition home or self-care (01) ==
LOC: CFH 10:32
PROVIDERS: ATTEND Surgery
DX: I71.4 Abdominal aortic aneurysm, without rupture (principal); K63.89 Other specified diseases of intestine; R60.0 Localized edema
CPT/HCPCS: 36415; 74177; 80048; 82565; 85025; Q9967; 87324

== ENCOUNTER 2019-02-18 11:20 | Inpatient (IN) | payer MEDICARE, BC ==
[~2019-02-18] VITALS: Ht 180.3 cm; Wt 73.0 kg
[~2019-02-18 11:20] MED LIST changes: -OMNIPAQUE 350 MG/ML, 100ML BOTTLE ONE
[2019-02-18] MEDS ORDERED: SODIUM CHLORIDE FLUSH 10ML SYR IVF ONE (12:00)
[2019-02-18 12:18] LABS: MEAN CORPUSCULAR HEMOGLOBIN 28.4 pg (27.5-34.5); MEAN CORPUSCULAR HGB CONC 32.9 g/dL (33.2-36.2); MEAN CORPUSCULAR VOLUME 86.5 fL (81-97); MEAN PLATELET VOLUME 7.2 fL (7.4-10.4); PLATELET COUNT 214 x10^3/uL (130-400); RED BLOOD COUNT 5.22 x10^6/uL (4.38-5.82); RED CELL DISTRIBUTION WIDTH 15.5 % (9.4-14.8)
[2019-02-18 12:36] LABS: ALANINE AMINOTRANSFERASE 38 U/L (12-78); ALBUMIN 3.7 g/dL (3.4-5.0); ANION GAP 9 mmol/L (5-15); CALCIUM 8.8 mg/dL (8.5-10.1); CHLORIDE 106 mmol/L (98-107)
[2019-02-18 12:39] LABS: ALKALINE PHOSPHATASE 65 U/L (45-117); BILIRUBIN,TOTAL 0.8 mg/dL (0.2-1.0); CREATININE 0.97 mg/dL (0.7-1.3)
[2019-02-18] MEDS ORDERED: FINA5TAB4 PO (12:39)
--- NOTE | 2019-02-18 13:05 | NUR ---
PT PRESENTED TO ED WITH DIARRHEA. PT STATES HE HAS HAD DIARRHEA X 5 DAYS. ASSESSMENT COMPLETED. PT PLACED IN ISOLATION. PT PLACED ON BP AND CONT. PULSE OXIMETER.
[2019-02-18 13:12] LABS: BASOPHILS # (AUTO) 0.02 x10^3/uL (0-0.1); BASOPHILS % (AUTO) 0 % (0-1); EOSINOPHILS # (AUTO) 0.32 x10^3/uL (0-0.4); EOSINOPHILS % (AUTO) 2 % (1-7); LYMPHOCYTES # (AUTO) 1.83 x10^3/uL (1-3.4); LYMPHOCYTES % (AUTO) 12 % (22-44); MD SCAN; MONOCYTES # (AUTO) 1.26 x10^3/uL (0.2-0.8); MONOCYTES % (AUTO) 8 % (2-9); NEUTROPHILS # (AUTO) 12.05 x10^3/uL (1.8-6.8); NEUTROPHILS % (AUTO) 78 % (42-75)
[2019-02-18 13:31] LABS: CLOSTRIDIUM DIFFICILE ANTIGEN NEGATIVE; CLOSTRIDIUM DIFFICILE TOXIN NEGATIVE (Negative)
[2019-02-18 14:29] LABS: MICROSCOPIC NOT IND
[2019-02-18 14:35] LABS: CULTURE INDICATED? NO
--- NOTE | 2019-02-18 15:30 | NUR ---
pt resting in bed. ID paged at this time.
--- NOTE | 2019-02-18 15:31 | NUR ---
pt taken to us
--- NOTE | 2019-02-18 15:41 | NUR ---
PT BACK FROM CT SCAN.
[2019-02-18] MEDS ORDERED: OMNIPAQUE 350 MG/ML, 100ML BOTTLE ONE (15:48)
--- NOTE | 2019-02-18 16:19 | NUR ---
dr. hi phoned- per verbal orders 2nd cdiff stool ordered and stool culture.
[2019-02-18] MEDS ORDERED: ONDANSETRON ODT 4 MG PO PRN (17:00)
[2019-02-18] MEDS ORDERED: CIPROFLOXACIN/PMX 400MG/200ML 200 ML IV SCH (17:00)
[2019-02-18] MEDS ORDERED: ONDANSETRON 2MG/ML, 2ML IVPush PRN (17:00)
[2019-02-18] MEDS ORDERED: LABETALOL 5MG/ML, 20ML IVPush PRN (17:00)
[2019-02-18 17:29] LABS: FREE T4 (FREE THYROXINE) 1.34 ng/dL (0.76-1.46)
--- NOTE | 2019-02-18 17:35 | NUR ---
ATTEMPTED TO CALL REPORT, NURSE UNAVAILABLE.
--- NOTE | 2019-02-18 17:36 | NUR ---
PENDING 2ND STOOL RESULTS FOR C-DIFF.
--- NOTE | 2019-02-18 17:50 | NUR ---
REPORT GIVEN TO CASEY MENJIVAR.
[2019-02-18] MEDS ORDERED: CIPROFLOXACIN/PMX 400MG/200ML 200 ML ONE (17:51)
[2019-02-18 18:44] LABS: CLOSTRIDIUM DIFFICILE ANTIGEN POSITIVE; CLOSTRIDIUM DIFFICILE TOXIN POSITIVE (Negative)
[2019-02-18 20:00] VITALS: BP 102/58
[2019-02-18] MEDS: LACTATED RINGERS 1,000 ML IV SCH (20:00)
[2019-02-18] MEDS: SIMVASTATIN 40 MG TABLET PO SCH (21:30)
[2019-02-18] MEDS: VANCOMYCIN 50 MG/ML ORAL SUSP PO SCH (21:30)
[2019-02-18] MEDS: CARVEDILOL 12.5 MG TABLET PO SCH (21:30)
[2019-02-19 02:41] VITALS: BP 96/62
[2019-02-19] MEDS: VANCOMYCIN 50 MG/ML ORAL SUSP PO SCH ×2 (04:30→08:14)
[2019-02-19 06:20] LABS: CHLORIDE 110 mmol/L (98-107)
[2019-02-19 06:31] LABS: MEAN CORPUSCULAR HEMOGLOBIN 28.1 pg (27.5-34.5); MEAN CORPUSCULAR HGB CONC 32.9 g/dL (33.2-36.2); MEAN CORPUSCULAR VOLUME 85.4 fL (81-97); MEAN PLATELET VOLUME 7.4 fL (7.4-10.4); PLATELET COUNT 202 x10^3/uL (130-400); RED CELL DISTRIBUTION WIDTH 15.4 % (9.4-14.8)
[2019-02-19 06:35] LABS: ALANINE AMINOTRANSFERASE 28 U/L (12-78); ALBUMIN 2.9 g/dL (3.4-5.0); ALKALINE PHOSPHATASE 36 U/L (45-117); ANION GAP 9 mmol/L (5-15); BILIRUBIN,TOTAL 0.6 mg/dL (0.2-1.0); CALCIUM 8.2 mg/dL (8.5-10.1); CREATININE 0.72 mg/dL (0.7-1.3); TOTAL PROTEIN 5.8 g/dL (6.4-8.2)
[2019-02-19 06:51] LABS: BASOPHILS # (AUTO) 0.02 x10^3/uL (0-0.1); BASOPHILS % (AUTO) 0 % (0-1); EOSINOPHILS # (AUTO) 0.45 x10^3/uL (0-0.4); EOSINOPHILS % (AUTO) 5 % (1-7); LYMPHOCYTES # (AUTO) 1.78 x10^3/uL (1-3.4); LYMPHOCYTES % (AUTO) 21 % (22-44); MD SCAN; MONOCYTES # (AUTO) 0.79 x10^3/uL (0.2-0.8); MONOCYTES % (AUTO) 9 % (2-9); NEUTROPHILS # (AUTO) 5.52 x10^3/uL (1.8-6.8); NEUTROPHILS % (AUTO) 65 % (42-75)
[2019-02-19 07:21] VITALS: BP 105/61
[2019-02-19] MEDS: FINASTERIDE 5 MG TABLET PO SCH (08:14)
[2019-02-19] MEDS: CARVEDILOL 12.5 MG TABLET PO SCH ×2 (08:14→22:10)
[2019-02-19] MEDS: ASPIRIN 81 MG TABLET EC PO SCH (08:14)
[2019-02-19] MEDS: TAMSULOSIN 0.4 MG CAP.ER.24H PO SCH (08:14)
[2019-02-19] MEDS: LACTATED RINGERS 1,000 ML IV SCH ×2 (08:15→17:21)
[2019-02-19] MEDS: ACETAMINOPHEN 325 MG TABLET PO PRN ×2 (10:34→22:30)
[2019-02-19] MEDS ORDERED: CIPROFLOXACIN/PMX 400MG/200ML 200 ML IV SCH (12:00)
[2019-02-19 13:59] VITALS: BP 127/81
[2019-02-19] MEDS: FIDAXOMICIN 200 MG TABLET PO SCH (17:08)
[2019-02-19 19:38] VITALS: BP 117/74
[2019-02-19] MEDS ORDERED: FIDAXOMICIN 200 MG TABLET PO SCH (21:00)
[2019-02-19] MEDS: SIMVASTATIN 40 MG TABLET PO SCH (22:10)
[2019-02-19] MEDS: MELATONIN 5 MG TABLET PO SCH (22:30)
[2019-02-20] MEDS: LACTATED RINGERS 1,000 ML IV SCH ×2 (05:19→15:05)
[2019-02-20] MEDS: FIDAXOMICIN 200 MG TABLET PO SCH ×2 (05:19→17:06)
[2019-02-20 05:46] LABS: BASOPHILS # (AUTO) 0.05 x10^3/uL (0-0.1); BASOPHILS % (AUTO) 1 % (0-1); EOSINOPHILS # (AUTO) 0.49 x10^3/uL (0-0.4); EOSINOPHILS % (AUTO) 5 % (1-7); LYMPHOCYTES % (AUTO) 20 % (22-44); MD NO; MEAN CORPUSCULAR HEMOGLOBIN 28.3 pg (27.5-34.5); MEAN PLATELET VOLUME 7.3 fL (7.4-10.4); MONOCYTES # (AUTO) 1.02 x10^3/uL (0.2-0.8); MONOCYTES % (AUTO) 11 % (2-9); NEUTROPHILS % (AUTO) 64 % (42-75); PLATELET COUNT 220 x10^3/uL (130-400); RED BLOOD COUNT 4.91 x10^6/uL (4.38-5.82); RED CELL DISTRIBUTION WIDTH 15.1 % (9.4-14.8)
[2019-02-20 06:01] LABS: ALBUMIN 3.1 g/dL (3.4-5.0); ANION GAP 9 mmol/L (5-15); CALCIUM 8.4 mg/dL (8.5-10.1); CHLORIDE 113 mmol/L (98-107)
[2019-02-20 06:04] LABS: ALANINE AMINOTRANSFERASE 30 U/L (12-78); ALKALINE PHOSPHATASE 55 U/L (45-117); BILIRUBIN,TOTAL 0.7 mg/dL (0.2-1.0); CREATININE 0.74 mg/dL (0.7-1.3)
[2019-02-20 07:10] VITALS: BP 108/67
[2019-02-20] MEDS: FINASTERIDE 5 MG TABLET PO SCH (09:03)
[2019-02-20] MEDS: CARVEDILOL 12.5 MG TABLET PO SCH ×2 (09:04→20:59)
[2019-02-20] MEDS: TAMSULOSIN 0.4 MG CAP.ER.24H PO SCH (09:04)
[2019-02-20] MEDS: SIMVASTATIN 40 MG TABLET PO SCH (09:04)
[2019-02-20] MEDS: ASPIRIN 81 MG TABLET EC PO SCH (09:04)
[2019-02-20] MEDS: ACETAMINOPHEN 325 MG TABLET PO PRN ×2 (12:05→21:03)
[2019-02-20 13:55] VITALS: BP 106/69
[2019-02-20 18:49] VITALS: BP 105/73
[2019-02-20] MEDS: MELATONIN 5 MG TABLET PO SCH (20:59)
[2019-02-21] MEDS: LACTATED RINGERS 1,000 ML IV SCH ×2 (02:00→13:01)
[2019-02-21 02:01] VITALS: BP 119/68
[2019-02-21] MEDS: FIDAXOMICIN 200 MG TABLET PO SCH ×2 (05:45→16:06)
[2019-02-21 05:58] LABS: CHLORIDE 114 mmol/L (98-107)
[2019-02-21 06:26] LABS: BASOPHILS # (AUTO) 0.03 x10^3/uL (0-0.1); BASOPHILS % (AUTO) 0 % (0-1); EOSINOPHILS # (AUTO) 0.48 x10^3/uL (0-0.4); EOSINOPHILS % (AUTO) 7 % (1-7); LYMPHOCYTES # (AUTO) 1.81 x10^3/uL (1-3.4); LYMPHOCYTES % (AUTO) 24 % (22-44); MD NO; MEAN CORPUSCULAR HEMOGLOBIN 28.6 pg (27.5-34.5); MEAN CORPUSCULAR HGB CONC 33.5 g/dL (33.2-36.2); MEAN CORPUSCULAR VOLUME 85.2 fL (81-97); MEAN PLATELET VOLUME 6.8 fL (7.4-10.4); MONOCYTES # (AUTO) 0.76 x10^3/uL (0.2-0.8); MONOCYTES % (AUTO) 10 % (2-9); NEUTROPHILS # (AUTO) 4.34 x10^3/uL (1.8-6.8); NEUTROPHILS % (AUTO) 59 % (42-75); PLATELET COUNT 203 x10^3/uL (130-400); RED BLOOD COUNT 4.82 x10^6/uL (4.38-5.82); RED CELL DISTRIBUTION WIDTH 15.3 % (9.4-14.8)
[2019-02-21 06:32] LABS: ALANINE AMINOTRANSFERASE 28 U/L (12-78); ALKALINE PHOSPHATASE 50 U/L (45-117); ANION GAP 8 mmol/L (5-15); BILIRUBIN,TOTAL 0.6 mg/dL (0.2-1.0); CALCIUM 8.4 mg/dL (8.5-10.1); CREATININE 0.67 mg/dL (0.7-1.3); TOTAL PROTEIN 5.7 g/dL (6.4-8.2)
[2019-02-21 07:55] VITALS: BP 138/84
[2019-02-21] MEDS: CARVEDILOL 12.5 MG TABLET PO SCH ×2 (08:37→21:20)
[2019-02-21] MEDS: FINASTERIDE 5 MG TABLET PO SCH (08:37)
[2019-02-21] MEDS: TAMSULOSIN 0.4 MG CAP.ER.24H PO SCH (08:37)
[2019-02-21] MEDS: ASPIRIN 81 MG TABLET EC PO SCH (08:37)
[2019-02-21] MEDS ORDERED: POTASSIUM CHLORIDE 40 MEQ in SODIUM CHLORIDE 0.9% 500 ML IV ONE ×2 (12:00→14:30)
[2019-02-21 12:52] VITALS: BP 141/77
[2019-02-21 19:58] VITALS: BP 132/74
[2019-02-21] MEDS: MELATONIN 5 MG TABLET PO SCH (21:20)
[2019-02-21] MEDS: SIMVASTATIN 40 MG TABLET PO SCH (21:20)
[2019-02-22 04:00] VITALS: BP 138/85
[2019-02-22] MEDS: FIDAXOMICIN 200 MG TABLET PO SCH ×2 (04:41→17:00)
[2019-02-22 08:37] VITALS: BP 138/78
[2019-02-22] MEDS: ASPIRIN 81 MG TABLET EC PO SCH (08:43)
[2019-02-22] MEDS: TAMSULOSIN 0.4 MG CAP.ER.24H PO SCH (08:43)
[2019-02-22] MEDS: FINASTERIDE 5 MG TABLET PO SCH (08:43)
[2019-02-22] MEDS: CARVEDILOL 12.5 MG TABLET PO SCH ×2 (08:43→21:52)
[2019-02-22] MEDS: ACETAMINOPHEN 325 MG TABLET PO PRN ×2 (08:49→21:52)
[2019-02-22 15:39] VITALS: BP 128/74
[2019-02-22 20:51] VITALS: BP 126/74
[2019-02-22] MEDS: SIMVASTATIN 40 MG TABLET PO SCH (21:52)
[2019-02-22] MEDS: MELATONIN 5 MG TABLET PO SCH (21:52)
[2019-02-23 04:00] VITALS: BP 151/90
[2019-02-23] MEDS: FIDAXOMICIN 200 MG TABLET PO SCH (04:57)
[2019-02-23 07:11] LABS: BASOPHILS # (AUTO) 0.05 x10^3/uL (0-0.1); BASOPHILS % (AUTO) 1 % (0-1); EOSINOPHILS # (AUTO) 0.47 x10^3/uL (0-0.4); EOSINOPHILS % (AUTO) 5 % (1-7); LYMPHOCYTES # (AUTO) 2.34 x10^3/uL (1-3.4); LYMPHOCYTES % (AUTO) 26 % (22-44); MD NO; MEAN CORPUSCULAR HEMOGLOBIN 27.8 pg (27.5-34.5); MEAN CORPUSCULAR HGB CONC 32.6 g/dL (33.2-36.2); MEAN CORPUSCULAR VOLUME 85.3 fL (81-97); MONOCYTES # (AUTO) 0.77 x10^3/uL (0.2-0.8); MONOCYTES % (AUTO) 9 % (2-9); NEUTROPHILS # (AUTO) 5.33 x10^3/uL (1.8-6.8); NEUTROPHILS % (AUTO) 60 % (42-75); PLATELET COUNT 255 x10^3/uL (130-400); RED BLOOD COUNT 5.14 x10^6/uL (4.38-5.82); RED CELL DISTRIBUTION WIDTH 15.3 % (9.4-14.8)
[2019-02-23 07:25] LABS: ALBUMIN 3.3 g/dL (3.4-5.0); ANION GAP 5 mmol/L (5-15); CALCIUM 8.8 mg/dL (8.5-10.1); CHLORIDE 112 mmol/L (98-107)
[2019-02-23 07:29] LABS: ALANINE AMINOTRANSFERASE 35 U/L (12-78); ALKALINE PHOSPHATASE 54 U/L (45-117); BILIRUBIN,TOTAL 0.4 mg/dL (0.2-1.0); CREATININE 0.79 mg/dL (0.7-1.3); TOTAL PROTEIN 6.2 g/dL (6.4-8.2)
[2019-02-23 07:33] VITALS: BP 127/77
[2019-02-23] MEDS: FINASTERIDE 5 MG TABLET PO SCH (08:18)
[2019-02-23] MEDS: CARVEDILOL 12.5 MG TABLET PO SCH (08:18)
[2019-02-23] MEDS: TAMSULOSIN 0.4 MG CAP.ER.24H PO SCH (08:18)
[2019-02-23] MEDS: ASPIRIN 81 MG TABLET EC PO SCH (08:19)
[2019-02-23 12:21] VITALS: BP 119/76
[2019-02-23] MEDS ORDERED: FIDA200T PO (14:21)
[2019-02-23 15:20] VITALS: BP 128/72
== END 2019-02-23 15:55 | disposition home or self-care (01) | DRG 371 ==
LOC: ED 13:54 → EDIP 16:09 → 4NOR 18:10
PROVIDERS: ADMIT Internal Medicine; ATTEND Internal Medicine
DX: A04.71 Enterocolitis due to Clostridium difficile, recurrent (principal); E43 Unspecified severe protein-calorie malnutrition; Z68.22 Body mass index [BMI] 22.0-22.9, adult; D64.9 Anemia, unspecified; E78.5 Hyperlipidemia, unspecified; E86.0 Dehydration; I10 Essential (primary) hypertension; J44.9 Chronic obstructive pulmonary disease, unspecified; K64.4 Residual hemorrhoidal skin tags; K64.8 Other hemorrhoids; M16.11 Unilateral primary osteoarthritis, right hip; N28.1 Cyst of kidney, acquired; N40.0 Benign prostatic hyperplasia without lower urinary tract symptoms; Z80.0 Family history of malignant neoplasm of digestive organs; Z83.3 Family history of diabetes mellitus; Z86.79 Personal history of other diseases of the circulatory system; Z87.891 Personal history of nicotine dependence; Z98.1 Arthrodesis status; Z86.010 Personal history of colon polyps; Z85.038 Personal history of other malignant neoplasm of large intestine
CPT/HCPCS: 36415; 74177; 80053; 81003; 83735; 84100; 84439; 84443; 85025; 87046; 87324; 89055; 96374; G0378; J0744; J3370; J3480; Q9967; J7040; J7120

== ENCOUNTER → 2019-03-18 | Outpatient (CLI) | payer MEDICARE, BC ==
[~2019-03-18] MED LIST changes: +FIDA200T PO; +FINA5TAB4 PO
== END | disposition home or self-care (01) ==
LOC: STAR 08:22
PROVIDERS: ATTEND Internal Medicine Gastroenterology
DX: B96.89 Other specified bacterial agents as the cause of diseases classified elsewhere (principal); Z01.818 Encounter for other preprocedural examination
CPT/HCPCS: 93005

== ENCOUNTER 2019-09-04 18:39 | Inpatient (IN) | payer MEDICARE, BC ==
[~2019-09-04] VITALS: Ht 182.9 cm; Wt 93.7 kg
[~2019-09-04 18:39] MED LIST changes: +AZIT500T10 PO; -AZIT500T5 PO
--- NOTE | 2019-09-04 18:50 | NUR ---
73 Y/O MALE BIB AMBULANCE WITH C/O FLU LIKE SX X 2 DAYS AND NEW ONSET FEVER TODAY. PER REPORT PT HAS BEEN FEELING FLU LIKE SX AND TODAY HE HAD SUDDEN ONSET OF FEVER OF 102. 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 PT STATES "I JUST GOT THIS FEVER TODAY." PT PLACED ON CONT PULSE OX,NIBP. NO C/O N/V/D, TRAUMA, SYNCOPE, CP, SOB.
[2019-09-04] MEDS ORDERED: MULT-717 PO (18:53)
--- NOTE | 2019-09-04 19:13 | NUR ---
BEDSIDE REPORT TO TIARA HU.
[2019-09-04] MEDS ORDERED: SODIUM CHLORIDE 0.9% 1,000ML IVBOLUS ONE ×2 (19:30→21:30)
[2019-09-04 19:37] LABS: BASOPHILS % (AUTO) 0 % (0-1); EOSINOPHILS # (AUTO) 0.18 x10^3/uL (0-0.4); EOSINOPHILS % (AUTO) 2 % (1-7); LYMPHOCYTES # (AUTO) 0.74 x10^3/uL (1-3.4); LYMPHOCYTES % (AUTO) 7 % (22-44); MD NO; MEAN CORPUSCULAR HEMOGLOBIN 29.3 pg (27.5-34.5); MEAN CORPUSCULAR HGB CONC 32.9 g/dL (33.2-36.2); MEAN CORPUSCULAR VOLUME 89.1 fL (81-97); MEAN PLATELET VOLUME 6.8 fL (7.4-10.4); MONOCYTES # (AUTO) 1.15 x10^3/uL (0.2-0.8); MONOCYTES % (AUTO) 10 % (2-9); NEUTROPHILS % (AUTO) 82 % (42-75); PLATELET COUNT 176 x10^3/uL (130-400); RED BLOOD COUNT 5.03 x10^6/uL (4.38-5.82); RED CELL DISTRIBUTION WIDTH 15.2 % (9.4-14.8)
[2019-09-04 19:45] LABS: ALANINE AMINOTRANSFERASE 23 U/L (12-78); ALBUMIN 3.3 g/dL (3.4-5.0); ANION GAP 7 mmol/L (5-15); CALCIUM 8.2 mg/dL (8.5-10.1); CHLORIDE 109 mmol/L (98-107); CREATININE 1.47 mg/dL (0.7-1.3)
[2019-09-04 19:45] LABS: RAPID INFLUENZA A Negative (Negative); RAPID INFLUENZA B Negative (Negative)
[2019-09-04 19:47] LABS: ALKALINE PHOSPHATASE 67 U/L (45-117); BILIRUBIN,TOTAL 0.4 mg/dL (0.2-1.0); TOTAL PROTEIN 6.6 g/dL (6.4-8.2)
--- NOTE | 2019-09-04 19:50 | NUR ---
PT AMBULATED TO BATHROOM FOR UA
[2019-09-04 20:00] LABS: MICROSCOPIC AUTO
[2019-09-04 20:03] LABS: CULTURE INDICATED? YES
--- NOTE | 2019-09-04 20:03 | NUR ---
SOCIAL SCIENCE MANAGER APPLIED
[2019-09-04] MEDS ORDERED: CEFAZOLIN PMX 1GM/50ML 0 ML ONE (20:39)
[2019-09-04] MEDS ORDERED: CEFTRIAXONE PMX 1GM/50ML 50 ML ONE (20:44)
[2019-09-04] MEDS ORDERED: CEFTRIAXONE PMX 1GM/50ML 50 ML IVPB ONE (21:00)
--- NOTE | 2019-09-04 21:07 | NUR ---
REPORT RECEIVED AND CARE ASSUMED. ERP IN TO RECHECK. 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 ERP AWARE AND AWAITING FURTHER ORDERS.
[2019-09-04] MEDS ORDERED: SODIUM CHLORIDE 0.9% 1,000 ML IV ONE (21:29)
[2019-09-04] MEDS ORDERED: SODIUM CHLORIDE FLUSH 10ML SYR IVF PRN (21:30)
[2019-09-04 22:04] VITALS: BP 100/59
[2019-09-04] MEDS ORDERED: POLYETHYLENE GLYCOL 17 GM PACKET PO PRN (22:30)
[2019-09-04] MEDS ORDERED: ONDANSETRON ODT 4 MG PO PRN (22:30)
[2019-09-04] MEDS ORDERED: BISACODYL 10 MG SUPP PR PRN (22:30)
[2019-09-04] MEDS: SIMVASTATIN 40 MG TABLET PO SCH (22:32)
[2019-09-04] MEDS ORDERED: ACETAMINOPHEN 325 MG TABLET ONE (22:38)
[2019-09-04] MEDS ORDERED: HEPARIN 5,000 UNITS/ML, 1ML ONE (22:38)
[2019-09-04] MEDS: HEPARIN 5,000 UNITS/ML, 1ML SQ SCH (22:41)
[2019-09-04] MEDS: SODIUM CHLORIDE 0.9% 1,000 ML IV SCH (22:41)
[2019-09-04] MEDS: ACETAMINOPHEN 325 MG TABLET PO PRN (22:42)
[2019-09-04 23:27] VITALS: BP 85/50
[2019-09-05] VITALS (8 sets, daily range): BP systolic 70–120; BP diastolic 41–70
[2019-09-05] MEDS ORDERED: SODIUM CHLORIDE 0.9% 1,000ML IVBOLUS ONE
[2019-09-05] MEDS: ACETAMINOPHEN 325 MG TABLET PO PRN ×3 (03:25→23:25)
[2019-09-05 04:57] LABS: BASOPHILS # (AUTO) 0.03 x10^3/uL (0-0.1); BASOPHILS % (AUTO) 0 % (0-1); EOSINOPHILS # (AUTO) 0.23 x10^3/uL (0-0.4); EOSINOPHILS % (AUTO) 3 % (1-7); LYMPHOCYTES # (AUTO) 1.18 x10^3/uL (1-3.4); LYMPHOCYTES % (AUTO) 16 % (22-44); MD NO; MEAN CORPUSCULAR HEMOGLOBIN 29.4 pg (27.5-34.5); MEAN CORPUSCULAR HGB CONC 33.1 g/dL (33.2-36.2); MEAN PLATELET VOLUME 6.7 fL (7.4-10.4); MONOCYTES # (AUTO) 0.79 x10^3/uL (0.2-0.8); MONOCYTES % (AUTO) 11 % (2-9); NEUTROPHILS # (AUTO) 5.04 x10^3/uL (1.8-6.8); NEUTROPHILS % (AUTO) 69 % (42-75); PLATELET COUNT 153 x10^3/uL (130-400); RED BLOOD COUNT 4.25 x10^6/uL (4.38-5.82)
[2019-09-05 05:06] LABS: ALANINE AMINOTRANSFERASE 19 U/L (12-78); ALBUMIN 2.6 g/dL (3.4-5.0); ANION GAP 4 mmol/L (5-15); CALCIUM 7.5 mg/dL (8.5-10.1); CHLORIDE 114 mmol/L (98-107); CREATININE 1.14 mg/dL (0.7-1.3)
[2019-09-05 05:12] LABS: ALKALINE PHOSPHATASE 51 U/L (45-117); BILIRUBIN,TOTAL 0.3 mg/dL (0.2-1.0); TOTAL PROTEIN 5.2 g/dL (6.4-8.2)
[2019-09-05] MEDS: SODIUM CHLORIDE 0.9% 1,000 ML IV SCH ×2 (06:17→15:04)
[2019-09-05] MEDS: HEPARIN 5,000 UNITS/ML, 1ML SQ SCH ×3 (06:17→22:46)
[2019-09-05] MEDS: ASPIRIN 81 MG TABLET EC PO SCH (09:37)
[2019-09-05] MEDS: FINASTERIDE 5 MG TABLET PO SCH (09:37)
[2019-09-05] MEDS: TAMSULOSIN 0.4 MG CAP.ER.24H PO SCH (09:38)
[2019-09-05] MEDS: SENNA/DOCUSATE TABLET PO SCH (09:38)
[2019-09-05] MEDS: MULTIVITAMINS/MINERALS TABLET PO SCH (09:38)
[2019-09-05] MEDS: ASA/APAP/ CAFFEINE TABLET PO PRN ×2 (11:26→20:10)
[2019-09-05] MEDS: VANCOMYCIN 50 MG/ML ORAL SUSP PO SCH ×2 (15:01→20:02)
[2019-09-05] MEDS: CEFTRIAXONE PMX 1GM/50ML 50 ML IV SCH (20:02)
[2019-09-05] MEDS: SIMVASTATIN 40 MG TABLET PO SCH (20:03)
[2019-09-05] MEDS ORDERED: VANCOMYCIN 50 MG/ML ORAL SUSP PO SCH (21:00)
[2019-09-05] MEDS: DIPHENHYDRAMINE 50 MG/ML, 1ML IVPush PRN (23:25)
[2019-09-06 01:45] VITALS: BP 93/52
[2019-09-06] MEDS: SODIUM CHLORIDE 0.9% 1,000 ML IV SCH ×2 (05:00→19:58)
[2019-09-06 05:32] LABS: BASOPHILS # (AUTO) 0.04 x10^3/uL (0-0.1); BASOPHILS % (AUTO) 1 % (0-1); EOSINOPHILS # (AUTO) 0.25 x10^3/uL (0-0.4); EOSINOPHILS % (AUTO) 3 % (1-7); LYMPHOCYTES # (AUTO) 1.83 x10^3/uL (1-3.4); LYMPHOCYTES % (AUTO) 25 % (22-44); MD NO; MEAN CORPUSCULAR HEMOGLOBIN 29.1 pg (27.5-34.5); MEAN CORPUSCULAR HGB CONC 32.6 g/dL (33.2-36.2); MEAN CORPUSCULAR VOLUME 89.2 fL (81-97); MEAN PLATELET VOLUME 7.2 fL (7.4-10.4); MONOCYTES # (AUTO) 1.07 x10^3/uL (0.2-0.8); MONOCYTES % (AUTO) 15 % (2-9); NEUTROPHILS % (AUTO) 57 % (42-75); PLATELET COUNT 161 x10^3/uL (130-400); RED BLOOD COUNT 4.48 x10^6/uL (4.38-5.82); RED CELL DISTRIBUTION WIDTH 15.7 % (9.4-14.8)
[2019-09-06 05:37] LABS: ANION GAP 6 mmol/L (5-15); CALCIUM 7.8 mg/dL (8.5-10.1); CHLORIDE 114 mmol/L (98-107)
[2019-09-06 05:39] LABS: CREATININE 0.77 mg/dL (0.7-1.3)
[2019-09-06] MEDS: HEPARIN 5,000 UNITS/ML, 1ML SQ SCH ×3 (06:08→23:10)
[2019-09-06] MEDS: FINASTERIDE 5 MG TABLET PO SCH (08:42)
[2019-09-06] MEDS: TAMSULOSIN 0.4 MG CAP.ER.24H PO SCH (08:44)
[2019-09-06] MEDS: SENNA/DOCUSATE TABLET PO SCH (08:45)
[2019-09-06] MEDS: MULTIVITAMINS/MINERALS TABLET PO SCH (08:46)
[2019-09-06] MEDS: ASPIRIN 81 MG TABLET EC PO SCH (08:47)
[2019-09-06] MEDS: VANCOMYCIN 50 MG/ML ORAL SUSP PO SCH ×2 (08:48→20:01)
[2019-09-06 09:20] VITALS: BP 142/80
[2019-09-06] MEDS: ASA/APAP/ CAFFEINE TABLET PO PRN ×2 (11:52→23:13)
[2019-09-06 15:22] VITALS: BP 113/72
[2019-09-06] MEDS: LACTOBACILLUS CHEW TABLET PO SCH ×2 (16:42→19:58)
[2019-09-06 19:15] VITALS: BP 107/66
[2019-09-06] MEDS: CEFTRIAXONE PMX 1GM/50ML 50 ML IV SCH (19:57)
[2019-09-06] MEDS: SIMVASTATIN 40 MG TABLET PO SCH (19:58)
[2019-09-06] MEDS: DIPHENHYDRAMINE 50 MG/ML, 1ML IVPush PRN (19:58)
[2019-09-07 04:06] VITALS: BP 112/69
[2019-09-07 05:38] LABS: BASOPHILS # (AUTO) 0.03 x10^3/uL (0-0.1); BASOPHILS % (AUTO) 0 % (0-1); EOSINOPHILS # (AUTO) 0.24 x10^3/uL (0-0.4); EOSINOPHILS % (AUTO) 4 % (1-7); LYMPHOCYTES # (AUTO) 1.82 x10^3/uL (1-3.4); LYMPHOCYTES % (AUTO) 26 % (22-44); MD NO; MEAN CORPUSCULAR HEMOGLOBIN 29.3 pg (27.5-34.5); MEAN CORPUSCULAR HGB CONC 33.2 g/dL (33.2-36.2); MEAN CORPUSCULAR VOLUME 88.3 fL (81-97); MEAN PLATELET VOLUME 6.7 fL (7.4-10.4); MONOCYTES % (AUTO) 14 % (2-9); NEUTROPHILS % (AUTO) 56 % (42-75); PLATELET COUNT 176 x10^3/uL (130-400); RED BLOOD COUNT 4.47 x10^6/uL (4.38-5.82); RED CELL DISTRIBUTION WIDTH 15.4 % (9.4-14.8)
[2019-09-07 05:52] LABS: ANION GAP 6 mmol/L (5-15); CHLORIDE 113 mmol/L (98-107)
[2019-09-07 05:54] LABS: CREATININE 0.79 mg/dL (0.7-1.3)
[2019-09-07] MEDS: LACTOBACILLUS CHEW TABLET PO SCH ×4 (06:04→20:10)
[2019-09-07] MEDS: ASA/APAP/ CAFFEINE TABLET PO PRN (06:05)
[2019-09-07 06:51] VITALS: BP 108/78
[2019-09-07] MEDS: VANCOMYCIN 50 MG/ML ORAL SUSP PO SCH ×2 (08:12→20:15)
[2019-09-07] MEDS: HEPARIN 5,000 UNITS/ML, 1ML SQ SCH ×2 (08:13→17:04)
[2019-09-07] MEDS: FINASTERIDE 5 MG TABLET PO SCH (08:13)
[2019-09-07] MEDS: TAMSULOSIN 0.4 MG CAP.ER.24H PO SCH (08:14)
[2019-09-07] MEDS: ASPIRIN 81 MG TABLET EC PO SCH (08:15)
[2019-09-07] MEDS: SENNA/DOCUSATE TABLET PO SCH (08:15)
[2019-09-07] MEDS: MULTIVITAMINS/MINERALS TABLET PO SCH (08:15)
[2019-09-07] MEDS: SODIUM CHLORIDE 0.9% 1,000 ML IV SCH (10:28)
[2019-09-07 12:19] VITALS: BP 128/77
[2019-09-07] MEDS: CEFDINIR 300 MG CAPSULE PO SCH (12:57)
[2019-09-07 14:13] VITALS: BP 158/84
[2019-09-07 19:49] VITALS: BP 126/82
[2019-09-07] MEDS: ACETAMINOPHEN 325 MG TABLET PO PRN (20:10)
[2019-09-07] MEDS: SIMVASTATIN 40 MG TABLET PO SCH (20:11)
[2019-09-07] MEDS: DIPHENHYDRAMINE 50 MG/ML, 1ML IVPush PRN (20:11)
[2019-09-08] MEDS: CEFDINIR 300 MG CAPSULE PO SCH (00:39)
[2019-09-08] MEDS: HEPARIN 5,000 UNITS/ML, 1ML SQ SCH ×2 (00:40→08:51)
[2019-09-08] MEDS: ASA/APAP/ CAFFEINE TABLET PO PRN (00:42)
[2019-09-08 01:36] VITALS: BP 119/76
[2019-09-08 05:05] LABS: BASOPHILS # (AUTO) 0.04 x10^3/uL (0-0.1); BASOPHILS % (AUTO) 1 % (0-1); EOSINOPHILS # (AUTO) 0.43 x10^3/uL (0-0.4); EOSINOPHILS % (AUTO) 6 % (1-7); LYMPHOCYTES % (AUTO) 27 % (22-44); MD NO; MEAN CORPUSCULAR HEMOGLOBIN 28.7 pg (27.5-34.5); MEAN CORPUSCULAR HGB CONC 32.3 g/dL (33.2-36.2); MEAN PLATELET VOLUME 6.6 fL (7.4-10.4); MONOCYTES # (AUTO) 0.88 x10^3/uL (0.2-0.8); MONOCYTES % (AUTO) 11 % (2-9); NEUTROPHILS # (AUTO) 4.37 x10^3/uL (1.8-6.8); NEUTROPHILS % (AUTO) 56 % (42-75); PLATELET COUNT 225 x10^3/uL (130-400); RED BLOOD COUNT 4.45 x10^6/uL (4.38-5.82); RED CELL DISTRIBUTION WIDTH 15.5 % (9.4-14.8)
[2019-09-08 05:18] LABS: CHLORIDE 113 mmol/L (98-107)
[2019-09-08] MEDS: LACTOBACILLUS CHEW TABLET PO SCH ×2 (05:19→12:02)
[2019-09-08 05:23] LABS: ANION GAP 6 mmol/L (5-15); CALCIUM 8.3 mg/dL (8.5-10.1); CREATININE 0.87 mg/dL (0.7-1.3)
[2019-09-08 07:15] VITALS: BP 146/94
[2019-09-08] MEDS: SENNA/DOCUSATE TABLET PO SCH (08:51)
[2019-09-08] MEDS: ASPIRIN 81 MG TABLET EC PO SCH (08:51)
[2019-09-08] MEDS: MULTIVITAMINS/MINERALS TABLET PO SCH (08:51)
[2019-09-08] MEDS: VANCOMYCIN 50 MG/ML ORAL SUSP PO SCH (08:51)
[2019-09-08] MEDS: FINASTERIDE 5 MG TABLET PO SCH (08:52)
[2019-09-08] MEDS: TAMSULOSIN 0.4 MG CAP.ER.24H PO SCH (08:52)
[2019-09-08] MEDS ORDERED: LEVOFLOXACIN 750 MG TABLET PO SCH (09:30)
[2019-09-08] MEDS: ACETAMINOPHEN 325 MG TABLET PO PRN ×2 (09:43→09:50)
[2019-09-08] MEDS ORDERED: LEVO750T26 PO (10:54)
[2019-09-08] MEDS ORDERED: ACID1TAB7 PO (10:54)
[2019-09-08] MEDS ORDERED: VANC125C3 PO (10:54)
[2019-09-08 12:08] VITALS: BP 148/95
[2019-09-08] MEDS ORDERED: FLU VACC QS2019-20 36MOS UP/PF 0.5 ML IM-VACC ONE (14:00)
== END 2019-09-08 14:31 | disposition home or self-care (01) | DRG 871 ==
LOC: ED 21:05 → EDIP 21:29 → 4WST 22:08 → DCLOUNGE 09-08 14:15
PROVIDERS: ADMIT Family Medicine; ATTEND Family Medicine
DX: A41.9 Sepsis, unspecified organism (principal); N17.0 Acute kidney failure with tubular necrosis; E44.0 Moderate protein-calorie malnutrition; E87.2 Acidosis; R65.20 Severe sepsis without septic shock; E78.5 Hyperlipidemia, unspecified; I10 Essential (primary) hypertension; N28.1 Cyst of kidney, acquired; N30.91 Cystitis, unspecified with hematuria; N40.0 Benign prostatic hyperplasia without lower urinary tract symptoms; K57.90 Diverticulosis of intestine, part unspecified, without perforation or abscess without bleeding; I25.2 Old myocardial infarction; Z80.0 Family history of malignant neoplasm of digestive organs; Z83.3 Family history of diabetes mellitus; Z85.038 Personal history of other malignant neoplasm of large intestine; Z86.19 Personal history of other infectious and parasitic diseases; Z87.891 Personal history of nicotine dependence; Z68.28 Body mass index [BMI] 28.0-28.9, adult; Z79.899 Other long term (current) drug therapy
CPT/HCPCS: 36415; 71046; 76770; 80048; 80053; 81001; 83605; 84145; 85025; 86756; 87040; 87086; 87400; 90686; 93005; 96361; 96374; G0378; J0696; J1644; J3370; J1200; J7030

== ENCOUNTER → 2020-07-20 | Outpatient (CLI) | payer MEDICARE, BC ==
[~2020-07-20] MED LIST changes: +ACID1TAB7 PO; -ENAL10TA PO; +ENAL10TA9 PO; +LEVO750T26 PO; +SIMV40TA20 PO; -SIMV40TA3 PO; +VANC125C3 PO
== END | disposition home or self-care (01) ==
LOC: CVU 09:28
PROVIDERS: ATTEND Internal Medicine Cardiovascular Disease
DX: I08.8 Other rheumatic multiple valve diseases (principal); I65.23 Occlusion and stenosis of bilateral carotid arteries; I25.10 Atherosclerotic heart disease of native coronary artery without angina pectoris
CPT/HCPCS: 93306; 93880

== ENCOUNTER → 2020-12-06 | Outpatient (CLI) | payer MEDICARE, BC | END | disposition home or self-care (01) | LOC: CFH 11:06 | PROVIDERS: ATTEND Internal Medicine | DX: M18.11 Unilateral primary osteoarthritis of first carpometacarpal joint, right hand (principal); M48.02 Spinal stenosis, cervical region; M47.812 Spondylosis without myelopathy or radiculopathy, cervical region; R20.9 Unspecified disturbances of skin sensation; M62.81 Muscle weakness (generalized) | CPT/HCPCS: 72050 ==